=== PATIENT | male | born 1965 | race Two or more races ===

== ENCOUNTER 2019-11-20 15:01 | Inpatient (IN) | payer MEDICAID ==
[~2019-11-20] VITALS: Ht 172.7 cm; Wt 114.5 kg
[2019-11-20 15:58] LABS: CLARITY,URINE CLEAR (Clear); COLOR,URINE YELLOW (Yellow); GLUCOSE, URINE >=1000 mg/dl (Neg); KETONES,URINE TRACE mg/dl (Neg); LEUKOCYTE ESTERASE ,URINE NEGATIVE (Neg); NITRITES, URINE NEGATIVE (Neg); OCCULT BLOOD,URINE NEGATIVE (Neg); PROTEIN,URINE NEGATIVE (Neg); UROBILINOGEN,URINE 0.2 E.U/dL (0.2-1.0)
[2019-11-20 16:01] LABS: UA COLLECTION TYPE CLN CATCH MIDSTREAM
[2019-11-20 16:07] LABS: MUCUS STRANDS MODERATE /LPF (Neg); SQUAMOUS EPITHELIAL CELL,UR FEW /LPF (FEW)
[2019-11-20 16:08] LABS: BACTERIA,URINE FEW /HPF (Neg); RBC,URINE 0-2 /HPF (0-2); WBC,URINE 0-4 /HPF (0-4)
[2019-11-20 16:37] LABS: BASOPHILS # (AUTO) 0.1 X10'3 (0-0.2); BASOPHILS % (AUTO) 1.3 % (0-1); EOSINOPHILS # (AUTO) 0.8 X10'3 (0-0.9); EOSINOPHILS % (AUTO) 9.9 % (0-6); LYMPHOCYTES # (AUTO) 2.8 X10'3 (1.1-4.8); LYMPHOCYTES % (AUTO) 35.1 % (21-51); MEAN CORPUSCULAR HEMOGLOBIN 30.7 PG (27.0-31.0); MEAN CORPUSCULAR HGB CONC 34.9 g/dL (33.0-36.5); MEAN CORPUSCULAR VOLUME 87.8 FL (78-98); MEAN PLATELET VOLUME 7.5 FL (7.4-10.4); MONOCYTES # (AUTO) 0.4 X10'3 (0-0.9); MONOCYTES % (AUTO) 4.9 % (2-12); NEUTROPHILS # (AUTO) 3.9 X10'3 (1.8-7.7); NEUTROPHILS % (AUTO) 48.8 % (42-75); PLATELET COUNT 278 X10'3 (140-440); RED CELL DISTRIBUTION WIDTH 12.7 % (11.5-14.5); WHITE BLOOD COUNT 8.1 X10'3 (4.5-11.0)
[2019-11-20 16:55] LABS: ALANINE AMINOTRANSFERASE 21 U/L (12-78); ALBUMIN 3.2 G/DL (3.4-5.0); ALBUMIN/GLOBULIN RATIO 0.8 (1.1-1.5); ALKALINE PHOSPHATASE 68 IU/L (46-116); ANION GAP 6 (8-16); ASPARTATE AMINO TRANSFERASE 12 U/L (10-37); BILIRUBIN,TOTAL 0.6 MG/DL (0.1-1.0); BLOOD UREA NITROGEN 9 MG/DL (7-18); BUN/CREATININE RATIO 13.4 (5.4-32.0); CALCIUM 8.3 MG/DL (8.5-10.1); CHLORIDE 103 MMOL/L (99-107); CREATININE 0.67 MG/DL (0.60-1.10); GLUCOSE 264 MG/DL (70-104); LIPASE 173 U/L (73-393); POTASSIUM 3.8 MMOL/L (3.5-5.1); SODIUM 137 MMOL/L (135-145); TOTAL CARBON DIOXIDE 27.9 MMOL/L (24-32); TOTAL PROTEIN 7.2 G/DL (6.4-8.2); eGFR > 90 ML/MIN
[2019-11-20] MEDS ORDERED: piperacillin/tazo 3.375gm/50ml 50 ML IV ONE (16:55)
[2019-11-20] MEDS ORDERED: normal saline 1000ML IV soln IVB ONE (16:55)
[2019-11-20] MEDS ORDERED: NO HOME MEDS (17:01)
[2019-11-20] MEDS: diatr meglu/diatrizoate 30ml oral sol.-(3 dose) bottle PO SCH (17:27)
[2019-11-20] MEDS ORDERED: potassium CL 10mEq/100ml bag 100 ML IV PRN ×2 (17:45)
[2019-11-20] MEDS ORDERED: morphine 2 MG/ML inj. syringe IV PRN (17:45)
[2019-11-20] MEDS ORDERED: magnesium Cl slow-release 64mg tablet PO PRN (17:45)
[2019-11-20] MEDS ORDERED: magnesium 2GM in 50ml NS 50 ML IV PRN (17:45)
[2019-11-20] MEDS ORDERED: potassium Cl 20 mEq SR tablet PO PRN ×2 (17:45)
[2019-11-20] MEDS ORDERED: HYDROcodone/acetaminophen 5mg/325mg tablet PO PRN (17:45)
[2019-11-20] MEDS ORDERED: magnesium 4gm in 100ml NS 100 ML IV PRN (17:45)
[2019-11-20] MEDS ORDERED: mag hydrox/Alum hydrox/simeth 30ml oral suspension PO PRN (17:45)
[2019-11-20] MEDS ORDERED: magnesium hydroxide 30ml (MOM) UD suspension PO PRN (17:45)
[2019-11-20] MEDS ORDERED: acetaminophen 325mg tablet PO PRN ×2 (17:45)
[2019-11-20] MEDS ORDERED: ondansetron/PF 4mg/2ml inj IV PRN (17:45)
[2019-11-20] MEDS: normal saline 1000ml 1,000 ML IV SCH (18:24)
--- NOTE | 2019-11-20 18:28 | NUR ---
He states he has pain 05/07, when asked if he wants pain medicine, he states 'later.'
--- NOTE | 2019-11-20 19:26 | NUR ---
Surgeon was in to see the patient. Pt up to BR
[2019-11-20] MEDS: K and/or MAG REPLACEMENT MC SCH (20:00)
--- NOTE | 2019-11-20 20:21 | NUR ---
He has been sleeping since he got back from the bathroom, and the son isn't in the room.
[2019-11-20] MEDS: heparin, porcine 5000 units/ml vial SQ SCH (20:28)
[2019-11-20] MEDS: morphine 2 MG/ML inj. syringe IV PRN (20:30)
--- NOTE | 2019-11-20 20:43 | NUR ---
son is back in the room, pt sleeping.
--- NOTE | 2019-11-20 22:31 | NUR ---
he has a habit of pushing his right hand into bed/his chest/chin. Three times I have retaped it. He bent it twice. Again I encouraged him to be careful with it. But, he falls asleep and it gets squished.
[2019-11-21] VITALS (12 sets, daily range): BP systolic 96–137; BP diastolic 38–81
[2019-11-21] MEDS: diatr meglu/diatrizoate 30ml oral sol.-(3 dose) bottle PO SCH ×2 (00:03→03:34)
[2019-11-21] MEDS: piperacillin/tazo 3.375gm/50ml 50 ML IV SCH ×3 (00:04→16:27)
--- NOTE | 2019-11-21 00:17 | NUR ---
he's really hard on his IV, both hand IVs occluded. So I dcd them and started an 18 ga RFA.
--- NOTE | 2019-11-21 01:11 | NUR ---
PT PLACED ON HOSPITAL BED FOR COMFORT
[2019-11-21] MEDS ORDERED: iohexol 300mg/ml 100ml inj. ONE (01:39)
--- NOTE | 2019-11-21 02:32 | NUR ---
SON BACK IN ROOM, GAVE HIM A WARM BLANKET. PT VOIDED INTO URINAL. HE IS BACK TO SLEEP.
[2019-11-21] MEDS: normal saline 1000ml 1,000 ML IV SCH (05:05)
[2019-11-21 06:23] LABS: BASOPHILS # (AUTO) 0.1 X10'3 (0-0.2); EOSINOPHILS # (AUTO) 0.8 X10'3 (0-0.9); EOSINOPHILS % (AUTO) 10.9 % (0-6); HEMATOCRIT 43.8 % (42.0-52.0); LYMPHOCYTES # (AUTO) 2.3 X10'3 (1.1-4.8); LYMPHOCYTES % (AUTO) 31.2 % (21-51); MEAN CORPUSCULAR HGB CONC 34.3 g/dL (33.0-36.5); MEAN CORPUSCULAR VOLUME 87.5 FL (78-98); MEAN PLATELET VOLUME 7.7 FL (7.4-10.4); MONOCYTES # (AUTO) 0.4 X10'3 (0-0.9); MONOCYTES % (AUTO) 5.2 % (2-12); NEUTROPHILS # (AUTO) 3.9 X10'3 (1.8-7.7); NEUTROPHILS % (AUTO) 51.7 % (42-75); PLATELET COUNT 285 X10'3 (140-440); RED CELL DISTRIBUTION WIDTH 12.8 % (11.5-14.5); WHITE BLOOD COUNT 7.5 X10'3 (4.5-11.0)
[2019-11-21 07:06] LABS: ALBUMIN 2.9 G/DL (3.4-5.0); ANION GAP 7 (8-16); BLOOD UREA NITROGEN 9 MG/DL (7-18); BUN/CREATININE RATIO 13.4 (5.4-32.0); CALCIUM 8.1 MG/DL (8.5-10.1); CHLORIDE 104 MMOL/L (99-107); CREATININE 0.67 MG/DL (0.60-1.10); GLUCOSE 237 MG/DL (70-104); MAGNESIUM 1.9 MG/DL (1.5-2.4); POTASSIUM 4.2 MMOL/L (3.5-5.1); SODIUM 139 MMOL/L (135-145); TOTAL CARBON DIOXIDE 27.6 MMOL/L (24-32); eGFR > 90 ML/MIN
[2019-11-21] MEDS: K and/or MAG REPLACEMENT MC SCH ×2 (08:00→20:00)
[2019-11-21] MEDS: heparin, porcine 5000 units/ml vial SQ SCH ×2 (08:00→20:58)
--- NOTE | 2019-11-21 08:36 | NUR ---
Patient in room ED 8. I have received report from Saige BROWN and had the opportunity to ask questions and assume patient care. Pt will be transfer to surgical floor shortly.
[2019-11-21 09:14] LABS: HEMOGLOBIN A1C 10.9 % (4.5-6.2)
[2019-11-21] MEDS: morphine 2 MG/ML inj. syringe IV PRN ×3 (09:23→21:07)
[2019-11-21] MEDS ORDERED: dextrose 50%-water 50ml dispensing syringe IV PRN ×2 (10:35)
[2019-11-21] MEDS ORDERED: dextrose ORAL solution 15 GM/59 ML bottle PO PRN ×2 (10:35)
[2019-11-21] MEDS ORDERED: MESSAGE TO PHARMACY PO ONE (10:35)
[2019-11-21] MEDS ORDERED: glucagon, human recombinant 1mg kit SUBCUT PRN (10:35)
[2019-11-21] MEDS ORDERED: BUPIVAcaine/PF 2.5 mg/ml (0.25%) 30ml vial ONE (12:27)
[2019-11-21] MEDS ORDERED: ringers solution, lacted 1,000 ML IV SCH (12:32)
[2019-11-21] MEDS ORDERED: fentaNYL/PF 50MCG/1 ML 2ML syringe IV PRN ×2 (12:35)
[2019-11-21] MEDS ORDERED: labetalol 20mg/4ml (5mg/ml) syringe IV PRN (12:35)
[2019-11-21] MEDS ORDERED: morphine 4 MG/ML inj SYRINge IV PRN ×2 (12:35)
[2019-11-21] MEDS ORDERED: hydrALAZINE 20mg/ml inj. IV PRN (12:35)
[2019-11-21] MEDS ORDERED: ondansetron/PF 4mg/2ml inj IV PRN ×2 (12:35→14:00)
[2019-11-21] MEDS ORDERED: fentaNYL/PF 50MCG/1 ML 2ML syringe ONE (12:41)
[2019-11-21] MEDS ORDERED: midazolam 2 mg/2 ml injection ONE (12:41)
[2019-11-21] MEDS ORDERED: LIDOcaine 2% (20mg/ml) 5ml vial ONE (12:42)
[2019-11-21] MEDS ORDERED: propofol inj 20 ML IV ONE (12:42)
[2019-11-21] MEDS ORDERED: ondansetron/PF 4mg/2ml inj ONE (12:43)
[2019-11-21] MEDS ORDERED: neostigmine methylsulfate 1 MG/ML 10ml vial ONE (12:43)
[2019-11-21] MEDS ORDERED: rocuronium 10mg/ml inj IV ONE (12:43)
[2019-11-21] MEDS ORDERED: glycopyrrolate 0.2mg/ml inj ONE (12:43)
[2019-11-21] MEDS ORDERED: sevoflurane 250ml liquid IH ONE (12:57)
[2019-11-21] MEDS ORDERED: dexamethasone sod phosphate 10mg/ml inj ONE (12:57)
[2019-11-21] MEDS ORDERED: HYDROcodone/acetaminophen 10/325mg tab PO PRN (14:00)
--- NOTE | 2019-11-21 14:09 | NUR ---
Received from OR via [facility], accompanied by Anesthesiologist DANIELLE and report given by Anesthesiolgist. PATIENT WITH 18G PIV IN RIGHT UE RUNNING LR AT 100. MEDICATED FOR PAIN UPON ARRIVAL. PATIENT WITH 3 ABDOMINAL LAP SITES ALL CDI. Addendum: 11/21/19 at 1419 by Chavez Milton RN, RN Amended: Links added.
--- NOTE | 2019-11-21 14:39 | NUR ---
ALL CRITERIA FOR TRANSFER TO THE FLOOR HAS BEEN ACHIEVED. VSS. BED LOW, CALL LIGHT AND VS. SET IN PLACE. RN PRESENT TO ACCEPT CARE. PATIENT RESTING COMFORTABLY IN BED. BELONGINGS SENT WITH PATIENT. DRESSINGS CDI. PATIENTS SON ACCOMPANIED US TO THE 3RD FLOOR, DENIES PAIN. DRESSINGS TO ABDOMEN ARE CDI. KEVIN MENDIETA AWARE PATIENT HAS ARRIVED. TATIANA BUSTAMANTE SETTING UP VITAL SIGNS. Addendum: 11/21/19 at 1447 by Chavez Ayala - KEVIN BROWN Amended: Links added.
--- NOTE | 2019-11-21 15:00 | NUR ---
DM consult: Pt with hx T2DM, current A1c 10.9. Pt in OR for lap appendectomy. Pt would benefit from DM education with referral to outpatient DM class once stable. Will continue to follow. Addendum: 11/21/19 at [address] Amended: Links added.
--- NOTE | 2019-11-21 15:01 | NUR ---
Received patient from recovery in stable conditions. pt mildly sedated. v/s stable. IV infusing, pt c/o mod pain. will continue to monitor per protocol.
--- NOTE | 2019-11-21 19:14 | NUR ---
Problems reprioritized. Patient report given, questions answered & plan of care reviewed with Sung BROWN.
[2019-11-21] MEDS: insulin Lispro (HumaLOG) vial - multi-dose SQ SCH ×2 (19:22→21:28)
[2019-11-21] MEDS ORDERED: insulin glargine (Lantus) pen - multi-dose SQ SCH (21:00)
[2019-11-22] VITALS: BP 108/69
[2019-11-22] MEDS: piperacillin/tazo 3.375gm/50ml 50 ML IV SCH ×2 (00:38→09:43)
[2019-11-22] MEDS: morphine 2 MG/ML inj. syringe IV PRN (03:35)
[2019-11-22 06:29] LABS: BASOPHILS % (AUTO) 0.3 % (0-1); EOSINOPHILS % (AUTO) 0.3 % (0-6); HEMATOCRIT 41.8 % (42.0-52.0); HEMOGLOBIN 14.6 g/dl (14.0-17.9); LYMPHOCYTES # (AUTO) 1.3 X10'3 (1.1-4.8); LYMPHOCYTES % (AUTO) 14.2 % (21-51); MEAN CORPUSCULAR HEMOGLOBIN 30.4 PG (27.0-31.0); MEAN CORPUSCULAR HGB CONC 34.8 g/dL (33.0-36.5); MEAN CORPUSCULAR VOLUME 87.5 FL (78-98); MEAN PLATELET VOLUME 7.6 FL (7.4-10.4); MONOCYTES # (AUTO) 0.5 X10'3 (0-0.9); MONOCYTES % (AUTO) 6.2 % (2-12); PLATELET COUNT 329 X10'3 (140-440); RED BLOOD COUNT 4.78 X10'6 (4.70-6.10); RED CELL DISTRIBUTION WIDTH 12.7 % (11.5-14.5); WHITE BLOOD COUNT 8.8 X10'3 (4.5-11.0)
[2019-11-22 07:00] LABS: CHLORIDE 104 MMOL/L (99-107); GLUCOSE 240 MG/DL (70-104); POTASSIUM 3.7 MMOL/L (3.5-5.1); SODIUM 139 MMOL/L (135-145)
[2019-11-22 07:01] LABS: ALBUMIN 2.9 G/DL (3.4-5.0); ANION GAP 8 (8-16); BLOOD UREA NITROGEN 10 MG/DL (7-18); BUN/CREATININE RATIO 14.5 (5.4-32.0); CALCIUM 8.1 MG/DL (8.5-10.1); CREATININE 0.69 MG/DL (0.60-1.10); MAGNESIUM 1.8 MG/DL (1.5-2.4); TOTAL CARBON DIOXIDE 26.7 MMOL/L (24-32); eGFR > 90 ML/MIN
[2019-11-22 07:42] VITALS: BP 99/59
[2019-11-22] MEDS: K and/or MAG REPLACEMENT MC SCH (08:00)
[2019-11-22] MEDS: insulin Lispro (HumaLOG) vial - multi-dose SQ SCH (09:42)
[2019-11-22] MEDS: heparin, porcine 5000 units/ml vial SQ SCH (09:43)
[2019-11-22 11:00] VITALS: BP 97/50
[2019-11-22] MEDS ORDERED: ACET-2119 PO (15:04)
[2019-11-22] MEDS ORDERED: IBUP-1984 PO (15:04)
--- NOTE | 2019-11-22 16:20 | NUR ---
Patient discharged home into care of son. Patient escorted down by member of the staff into private vehicle. Patient alert, oriented and appropriate for discharge. IV's removed, no tele, patient verbalized understanding of discharge plans and understands the need to follow up with MD Etienne in 1-2 weeks.
[2019-11-23] MEDS ORDERED: TRAM50TA2 PO (13:03)
== END 2019-11-22 16:20 | disposition home or self-care (01) | DRG 234 ==
LOC: EDBD 15:02 → ER 15:02 → ED HOLD 18:03 → SUR 3N 11-21 09:12
PROVIDERS: ADMIT Hospitalist; ATTEND Hospitalist
PROC: BW211ZZ Computerized Tomography (CT Scan) of Abdomen and Pelvis using Low Osmolar Contrast (ICD-10-PCS; 2019-11-21)
PROC: 0DTJ4ZZ Resection of Appendix, Percutaneous Endoscopic Approach (ICD-10-PCS; principal; 2019-11-21 12:57)
DX: K35.80 Unspecified acute appendicitis (principal); E66.9 Obesity, unspecified; I10 Essential (primary) hypertension; F17.200 Nicotine dependence, unspecified, uncomplicated; Z68.38 Body mass index [BMI] 38.0-38.9, adult
CPT/HCPCS: 36415; 74177; 80048; 80053; 81001; 82948; 83036; 83690; 83735; 85025; 87081; A4215; A4314; A4618; A7000; G0378; J1100; J1644; J1815; J2001; J2250; J2270; J2405; J2543; J2704; J2710; J3010; J3490; J7030; J7120; Q9963; Q9967